=== PATIENT | male | born 1995 | race Caucasian/White ===

== ENCOUNTER 2017-04-17 16:26 | Emergency (ER) | payer BC, OTHER | END 2017-04-17 19:01 | disposition home or self-care (01) | LOC: ER1 16:26 | DX: S31.35XA Open bite of scrotum and testes, initial encounter (principal); W54.0XXA Bitten by dog, initial encounter; Z23 Encounter for immunization | CPT/HCPCS: 90471; 90675; 90715; 96365; 96372; 99283; J1335; J7050 ==

== ENCOUNTER → 2017-04-24 | Outpatient (CLI) | payer BC | LOC: OPSV 10:07 → EROP 10:07 | DX: Z23 Encounter for immunization (principal) | CPT/HCPCS: 90471; 90675 ==

== ENCOUNTER → 2017-05-08 | Outpatient (CLI) | payer BC ==
[~2017-05-08] VITALS: Ht 188 cm; Wt 67.6 kg
== END ==
LOC: OPSV 09:25
DX: Z23 Encounter for immunization (principal)
CPT/HCPCS: 90471; 90675